=== PATIENT | male | born 2000 | race African-American/Black ===

== ENCOUNTER 2025-02-28 19:22 | Emergency (ER) | payer SELFPAY ==
[~2025-02-28] VITALS: Ht 182.9 cm; Wt 73.0 kg
[2025-02-28 19:33] VITALS: TEMP 99; O2SAT 99
[2025-02-28 21:30] LABS: BASOPHILS % 0.2 % (0.0-2.0); EOSINOPHILS % 0.0 % (0.0-5.0); HEMATOCRIT. 45.5 % (42.0-52.0); HEMOGLOBIN. 15.0 g/dL (14.0-18.0); LYMPHOCYTES % 9.3 % (20.0-50.0); MEAN PLATELET VOLUME 8.6 fl (7.4-10.4); MONOCYTES % 6.6 % (2.0-8.0); NEUTROPHILS % 83.9 % (40.0-76.0); PLATELET 277 x1000/uL (130-400); RED BLOOD CELL COUNT 5.16 mill/uL (4.7-6.1); RED CELL DISTRIBUTION WIDTH 13.1 % (11.6-14.6)
[2025-02-28 21:52] LABS: CREATININE 1.0 mg/dL (0.6-1.3); PROTEIN TOTAL 8.5 g/dL (6.0-8.3); UREA NITROGEN BLOOD 8 mg/dL (9-23)
[2025-02-28 21:53] LABS: ASPARTATE AMINOTRANSFERASE 29 IU/L (<34)
[2025-02-28 21:54] LABS: BILIRUBIN DIRECT 0.5 mg/dL (<=3.0); BILIRUBIN TOTAL 1.9 mg/dL (0.1-1.0)
[2025-02-28] MEDS: SODIUM CHLORIDE 0.9% 1,000 ML IV ONE (22:07)
[2025-02-28] MEDS: METOCLOPRAMIDE HCL 10MG/2ML VIAL IV ONE (22:07)
[2025-02-28] MEDS: LOPERAMIDE HCL 2MG CAPSULE PO ONE (22:09)
[2025-02-28] MEDS ORDERED: METRONIDAZOLE 500 MG PREMIX 100 ML IV ONE (22:15)
[2025-02-28] MEDS: MORPHINE SULFATE 4 MG/ML INJ (FOR IV/IM USE) IV ONE (22:25)
[2025-02-28] MEDS: CEFTRIAXONE 1GM/50ML 50 ML IV ONE (23:03)
[2025-02-28] MEDS: POTASSIUM CHLORIDE 20MEQ/PACKET PO ONE (23:03)
[2025-02-28] MEDS ORDERED: ONDA-239 PO (23:15)
[2025-02-28] MEDS ORDERED: AZIT250T12 MT (23:15)
[2025-02-28] MEDS: HALOPERIDOL LACTATE 5MG/ML VIAL IM ONE (23:25)
[2025-02-28 23:54] VITALS: BP 130/71; PULSE 65; RESP 13; O2SAT 100
== END 2025-02-28 23:54 | disposition home or self-care (01) ==
LOC: ER 19:22
DX: R11.2 Nausea with vomiting, unspecified (principal); R19.7 Diarrhea, unspecified
CPT/HCPCS: 80076; 80048; 83690; 85025; 87040; 36415; 74176; 96361; 96365; 96375; 99285; J0696; J2765; J2270; J7030; Z7610